=== PATIENT | female | born 1990 | race Caucasian/White ===

== ENCOUNTER 2017-08-30 16:18 | Emergency (ER) | payer SELFPAY ==
[2017-08-30 16:25] VITALS: RESP 16; TEMP 98.8
--- NOTE | 2017-08-30 16:26 | EDPHY ---
HPI/HX/ROS/PE/MDM Narrative: CHIEF COMPLAINT: Heart palpitations HPI: The patient is a 27 y/o female complaining of heart palpitations and fluttering for the past 2 weeks. She initially had pain in her armpits and groin, that was more pronounced on the left side. In addition to the heart flutters, she had pain beneath her left-sided ribs. When she has the heart palpitations, she occasionally has acute mid-sternal pain that lasts around 1-2 seconds. The pain is exacerbated when she has to lift objects. Denies fever, rash, recent illness , recent travel, CAD, night sweats, weight loss or weight gain. REVIEW OF SYSTEMS: Aside from elements discussed in the HPI, a comprehensive 10-point review of systems was reviewed and is negative. PMH: Denies SOCIAL HISTORY: Lives in [place], single, works as a lund PHYSICAL EXAM: General:Patient is alert, in no acute distress. ENT:Eyes are normal to inspection. ENT inspection normal. No lymphadenopathy. Neck: Normal inspection. Full range of motion. Respiratory:No respiratory distress. Breath sounds normal bilaterally. Cardiovascular: Regular rate and rhythm. Strong peripheral pulses. Normal cap refill. Abdomen:The abdomen is nontender to palpation. There are no peritoneal signs. There are normal bowel sounds. Back: Normal to inspection. No tenderness to palpation. Skin: Normal color. No rash. Warm and dry. Extremities: Normal appearance. Full range of motion. Neuro: Oriented x3. Normal motor function. Normal sensory function. ED Course: 1635: EKG was ordered and interpreted by myself as sinus rhythm with a rate of 72. Please see [facility] system for official reading. 1729: Reassessed patient and discussed EKG and laboratory findings. I have referred her to an outpatient follow up with Dr. Gupta, vp business development. Return precautions provided; patient is comfortable with this plan. MDM: This is a young healthy patient with palpitations. Her ECG shows no signs of arrhythmia or other abnormality - no evidence of [place] etc. Her blood work is normal. Her vital signs are normal. Given normal WBC, I think acute infection or hematologic disorder such as lymphoma is very unlikely. No signs of ACS. I think the patient is appropriate for outpatient management and we have referred her to a vp business development. Patient is comfortable with this plan. - Data Points Imaging: I viewed and interpreted images myself Laboratory Results: Laboratory Results 08/30/17 16:45 08/30/17 16:45 08/30/17 08/30/17 08/30/17 16:45 16:45 16:45 WBC 8.03 10^3/uL 10^3/uL (3.80-9.50) RBC 4.54 10^6/uL 10^6/uL (4.18-5.33) Hgb 14.6 g/dL g/dL (12.6-16.3) Hct 41.0 % % (38.0-47.0) MCV 90.3 fL fL (81.5-99.8) MCH 32.2 pg pg (27.9-34.1) MCHC 35.6 g/dL g/dL (32.4-36.7) RDW 12.7 % % (11.5-15.2) Plt Count 274 10^3/uL 10^3/uL (150-400) MPV 10.0 fL fL (8.7-11.7) Neut % (Auto) 70.2 % % (39.3-74.2) Lymph % (Auto) 20.5 % % (15.0-45.0) [place] % (Auto) 8.0 % % (4.5-13.0) Eos % (Auto) 0.4 % L % (0.6-7.6) Baso % (Auto) 0.5 % % (0.3-1.7) Nucleat RBC Rel Count 0.0 % % (0.0-0.2) Absolute Neuts (auto) 5.64 10^3/uL 10^3/uL (1.70-6.50) Absolute Lymphs (auto) 1.65 10^3/uL 10^3/uL (1.00-3.00) Absolute Monos (auto) 0.64 10^3/uL 10^3/uL (0.30-0.80) Absolute Eos (auto) 0.03 10^3/uL 10^3/uL (0.03-0.40) Absolute Basos (auto) 0.04 10^3/uL 10^3/uL (0.02-0.10) Absolute Nucleated RBC 0.00 10^3/uL 10^3/uL (0-0.01) Immature Gran % 0.4 % % (0.0-1.1) Immature Gran # 0.03 10^3/uL 10^3/uL (0.00-0.10) Sodium 138 mEq/L mEq/L (134-144) Potassium 4.0 mEq/L mEq/L (3.5-5.2) Chloride 104 mEq/L mEq/L (97-110) Carbon Dioxide 22 mEq/l mEq/l (22-31) Anion Gap 12 mEq/L mEq/L (8-16) BUN 13 mg/dL mg/dL (7-23) Creatinine 0.7 mg/dL mg/dL (0.6-1.0) Estimated GFR > 60 Glucose 98 mg/dL mg/dL (70-100) Calcium 10.1 mg/dL mg/dL (8.5-10.4) Troponin I < 0.012 ng/mL ng/mL (0.000-0.034) Beta HCG, Qual NEGATIVE General Time Seen by Provider: 08/30/17 16:25 Initial Vital Signs: Initial Vital Signs Temperature (C) 37.1 C 08/30/17 16:21 Heart Rate 90 08/30/17 16:21 Respiratory Rate 16 08/30/17 16:21 Blood Pressure 117/75 08/30/17 16:21 O2 Sat (%) 99 08/30/17 16:21 O2 Delivery Mode Room Air Allergies/Adverse Reactions: No Known Allergies Allergy (Verified 08/30/17 16:19) Home Medications: Medication Instructions Recorded NK [No Known Home Meds] 08/30/17 Departure - Departure Disposition: Home, Routine, Self-Care Clinical Impression: Palpitations Condition: Good Instructions: Palpitations (ED) Additional Instructions: 1. Follow-up with your primary doctor within 72 hours. 2. Return to the Emergency Department for fever, chest pain, shortness of breath , increasing pain or other worsening of condition. 3. Follow up with a vp business development for further testing, as soon as possible, within one week. 4. As we discussed, it is impossible to fully rule out heart disease as the cause of your chest pain in the emergency department. We would be happy to reevaluate you and observe you in the hospital at any time. Referrals: Kasandra To MD [Primary Care Provider] - As per Instructions Iam Gupta MD [Medical Doctor] - As per Instructions Report Scribed for: Yousuf Brooks Report Scribed by: Socorro Gee Date of Report: 08/30/17 Time of Report: 16:25 Physician Review and Approval Statement: Portions of this note were transcribed by an ED scribe. I personally performed the history, physical exam, and medical decision making; and confirm the accuracy of the information in the transcribed note.
--- NOTE | 2017-08-30 16:37 | CPEKG ---
Heart Rate: 72 RR Interval: 833 P-R Interval: 144 QRSD Interval: 82 QT Interval: 372 QTC Interval: 408 P [place]: 60 QRS [place]: 64 T Wave [place]: 38 EKG Severity - NORMAL ECG - EKG Impression: SINUS RHYTHM Electronically Signed By: Gilbert Neil 31-Aug-2017 11:04:11
[2017-08-30 16:53] LABS: % IMMATURE GRANULYOCYTES 0.4 % (0.0-1.1); ABSOLUTE IMMATURE GRANULOCYTES 0.03 10^3/uL (0.00-0.10); ADD DIFF? NO; ADD MORPH? NO; ADD SCAN? NO; ATYPICAL LYMPHOCYTE FLAG 0 (0-99); FRAGMENT RBC FLAG 0 (0-99); HEMOGLOBIN 14.6 g/dL (12.6-16.3); LEFT SHIFT FLG 0 (0-99); LIPEMIA HEMOLYSIS FLAG 90 (0-99); MEAN CELL HEMOGLOBIN 32.2 pg (27.9-34.1); MEAN CELL HEMOGLOBIN CONCENTR. 35.6 g/dL (32.4-36.7); MEAN CELL VOLUME 90.3 fL (81.5-99.8); PLATELET CLUMPS FLAG 0 (0-99); PLATELET COUNT 274 10^3/uL (150-400); RED BLOOD CELL COUNT 4.54 10^6/uL (4.18-5.33); RED CELL DISTRIBUTION WIDTH 12.7 % (11.5-15.2)
[2017-08-30 17:12] LABS: ANION GAP 12 mEq/L (8-16); CALCIUM 10.1 mg/dL (8.5-10.4); CARBON DIOXIDE 22 mEq/l (22-31); CHLORIDE 104 mEq/L (97-110); CREATININE 0.7 mg/dL (0.6-1.0); GLOMERULAR FILTRATION RATE > 60; GLUCOSE 98 mg/dL (70-100); SODIUM 138 mEq/L (134-144)
[2017-08-30 17:23] LABS: TROPONIN I < 0.012 ng/mL (0.000-0.034)
[2017-08-30 17:46] VITALS: BP 113/68; PULSE 74; O2SAT 96
== END 2017-08-30 17:46 | disposition home or self-care (01) ==
DX: R00.2 Palpitations (principal)